=== PATIENT | female | born 1990 | race Two or more races ===

== ENCOUNTER 2018-04-26 02:40 | Emergency (ER) | payer MEDICAID ==
[~2018-04-26] VITALS: Ht 170.2 cm; Wt 65.9 kg
[2018-04-26 02:42] VITALS: BP 134/83
[2018-04-26] MEDS ORDERED: TETRACAINE 0.5% 5 ML OPHTHALMIC DROPS RIGHTEYE ONE (03:25)
== END 2018-04-26 04:02 | disposition home or self-care (01) ==
LOC: ER 02:41
DX: H57.11 Ocular pain, right eye (principal); F17.200 Nicotine dependence, unspecified, uncomplicated; Z56.0 Unemployment, unspecified; W22.8XXA Striking against or struck by other objects, initial encounter; Y93.89 Activity, other specified; Y92.89 Other specified places as the place of occurrence of the external cause; Y99.8 Other external cause status
CPT/HCPCS: 99283

== ENCOUNTER 2019-03-17 20:19 | Emergency (ER) | payer MEDICAID ==
[~2019-03-17] VITALS: Ht 170.2 cm; Wt 65.0 kg
[2019-03-17 20:40] VITALS: BP 109/71
--- NOTE | 2019-03-17 21:45 | NUR ---
TRIED TO CALL PATIENT AND NIL AND NOT OUTSIDE AND THE 2 PHONE NUMBERS ON DEMOGRAPHIC SHEET IS NOT IN SERVICE.
== END 2019-03-17 22:52 | disposition left against medical advice (07) ==
LOC: ER 20:19
DX: R05 Cough (principal); R51 Headache; R50.9 Fever, unspecified; Z53.21 Procedure and treatment not carried out due to patient leaving prior to being seen by health care provider

== ENCOUNTER 2019-08-08 16:54 | Emergency (ER) | payer MEDICAID ==
[~2019-08-08] VITALS: Ht 170.2 cm; Wt 67.0 kg
[2019-08-08 17:37] LABS: URINE HCG NEGATIVE (NEG)
[2019-08-08] MEDS ORDERED: normal saline 1000ML IV soln IVB ONE (17:40)
[2019-08-08 17:45] LABS: CLARITY,URINE CLOUDY (Clear); COLOR,URINE YELLOW (Yellow); GLUCOSE, URINE NEGATIVE (Neg); KETONES,URINE NEGATIVE (Neg); LEUKOCYTE ESTERASE ,URINE NEGATIVE (Neg); NITRITES, URINE POSITIVE (Neg); OCCULT BLOOD,URINE TRACE-INTACT (Neg); PROTEIN,URINE NEGATIVE (Neg)
[2019-08-08 17:46] LABS: UA COLLECTION TYPE CLN CATCH MIDSTREAM
[2019-08-08 17:53] LABS: BACTERIA,URINE 4+ /HPF (Neg); MUCUS STRANDS MODERATE /LPF (Neg); RBC,URINE 0-2 /HPF (0-2); SQUAMOUS EPITHELIAL CELL,UR MANY /LPF (FEW); WBC CLUMPS,URINE FEW /HPF (NEGATIVE)
[2019-08-08 18:29] LABS: BASOPHILS % (AUTO) 0.3 % (0-1); EOSINOPHILS # (AUTO) 0.1 X10'3 (0-0.9); EOSINOPHILS % (AUTO) 1.2 % (0-6); HEMATOCRIT 37.2 % (35.0-45.0); HEMOGLOBIN 12.4 g/dl (12.0-16.0); LYMPHOCYTES # (AUTO) 2.1 X10'3 (1.1-4.8); LYMPHOCYTES % (AUTO) 26.4 % (21-51); MEAN CORPUSCULAR HEMOGLOBIN 30.7 PG (27.0-31.0); MEAN CORPUSCULAR HGB CONC 33.4 g/dL (33.0-36.5); MEAN CORPUSCULAR VOLUME 92.1 FL (78-98); MEAN PLATELET VOLUME 7.6 FL (7.4-10.4); MONOCYTES # (AUTO) 0.6 X10'3 (0-0.9); MONOCYTES % (AUTO) 7.8 % (2-12); NEUTROPHILS # (AUTO) 5.2 X10'3 (1.8-7.7); NEUTROPHILS % (AUTO) 64.3 % (42-75); PLATELET COUNT 231 X10'3 (140-440); RED BLOOD COUNT 4.04 X10'6 (4.20-5.60); RED CELL DISTRIBUTION WIDTH 13.1 % (11.5-14.5); WHITE BLOOD COUNT 8.1 X10'3 (4.5-11.0)
[2019-08-08 18:40] LABS: ALANINE AMINOTRANSFERASE 12 U/L (12-78); ALBUMIN 3.2 G/DL (3.4-5.0); ALKALINE PHOSPHATASE 61 IU/L (46-116); ANION GAP 5 (8-16); ASPARTATE AMINO TRANSFERASE 15 U/L (10-37); BILIRUBIN,TOTAL 0.4 MG/DL (0.1-1.0); BLOOD UREA NITROGEN 11 MG/DL (7-18); BUN/CREATININE RATIO 13.1 (6.6-38.0); CALCIUM 7.9 MG/DL (8.5-10.1); CHLORIDE 107 MMOL/L (99-107); CREATININE 0.84 MG/DL (0.40-0.90); GLUCOSE 90 MG/DL (70-104); LIPASE < 50 U/L (73-393); POTASSIUM 4.1 MMOL/L (3.5-5.1); SODIUM 141 MMOL/L (135-145); TOTAL CARBON DIOXIDE 28.8 MMOL/L (24-32); TOTAL PROTEIN 6.4 G/DL (6.4-8.2); eGFR 80 ML/MIN
[2019-08-08] MEDS ORDERED: PHEN-716 PO (19:02)
[2019-08-08] MEDS ORDERED: NITR100C6 PO (19:02)
[2019-08-08 19:17] LABS: URINE AMPHETAMINE SCREEN POSITIVE (Neg); URINE BARBITUATE SCREEN NEGATIVE (Neg); URINE BENZODIAZEPINES SCREEN NEGATIVE (Neg); URINE CANNABINOID SCREEN POSITIVE (Neg); URINE COCAINE SCREEN NEGATIVE (Neg); URINE METHADONE SCREEN NEGATIVE (Neg); URINE OPIATE SCREEN POSITIVE (Neg); URINE PHENCYCLIDINE SCREEN NEGATIVE (Neg)
[2019-08-08 19:25] VITALS: BP 98/66
== END 2019-08-08 19:25 | disposition home or self-care (01) ==
LOC: ER 16:54
DX: N39.0 Urinary tract infection, site not specified (principal); Z56.0 Unemployment, unspecified
CPT/HCPCS: 36415; 80053; 80305; 81001; 81025; 83690; 85025; 99283; J7030

== ENCOUNTER 2020-11-18 12:24 | Emergency (ER) | payer MEDICAID ==
[~2020-11-18] VITALS: Ht 170.2 cm; Wt 65.9 kg
[~2020-11-18 12:24] MED LIST: NITR100C6 PO; PHEN-716 PO
[2020-11-18] MEDS ORDERED: NAPR-56 PO (12:37)
[2020-11-18] MEDS ORDERED: ALBU6.7H9 INH (12:37)
[2020-11-18 12:39] VITALS: BP 99/64
[2020-11-18] MEDS ORDERED: PRED20TA PO (13:12)
[2020-11-18] MEDS ORDERED: LEVO500T89 PO (13:12)
== END 2020-11-18 13:30 | disposition home or self-care (01) ==
LOC: ER 12:24
DX: U07.1 COVID-19 (principal); N39.0 Urinary tract infection, site not specified; J18.9 Pneumonia, unspecified organism; R06.02 Shortness of breath; R05 Cough; R07.81 Pleurodynia; Z87.440 Personal history of urinary (tract) infections; Z56.0 Unemployment, unspecified; Z79.2 Long term (current) use of antibiotics; Z79.899 Other long term (current) drug therapy
CPT/HCPCS: 36415; 71045; 99284; U0003; U0005

== ENCOUNTER 2021-02-20 16:29 | Emergency (ER) | payer MEDICAID ==
[~2021-02-20] VITALS: Ht 170.2 cm; Wt 70.1 kg
[~2021-02-20 16:29] MED LIST changes: +ALBU6.7H9 INH
[2021-02-20 16:50] VITALS: BP 111/53
[2021-02-20] MEDS ORDERED: PERM60CR19 TOP (16:55)
== END 2021-02-20 17:47 | disposition home or self-care (01) ==
LOC: ER 16:30
DX: B86 Scabies (principal); B88.9 Infestation, unspecified; Z56.0 Unemployment, unspecified; Z79.899 Other long term (current) drug therapy
CPT/HCPCS: 99283

== ENCOUNTER 2025-02-12 11:27 | Emergency (ER) | payer MEDICAID ==
[~2025-02-12] VITALS: Ht 170.2 cm; Wt 65.9 kg
[~2025-02-12 11:27] MED LIST changes: +ALBU6.7H14 INH; -ALBU6.7H9 INH
[2025-02-12 11:33] VITALS: BP 145/87; PULSE 87; RESP 16; TEMP 98.9; O2SAT 99
--- NOTE | 2025-02-12 11:46 | Physician Documentation ---
History of Present Illness ~ Chief Complaint: Medical Clearance Stated Complaint: MED CLEARANCE Time Seen by MD: 11:38 Primary Medical Doctor: NO PMD HPI 34-year-old female presents via [facility] for concerns were snoring drugs in her vagina. [facility] indicates that time there was drugs found in her brought which he did not disclose. Patient states she also soil herself. Denies any current intoxication. The custodial use their x-ray machine indicated there may be a foreign body in the vaginal canal Day of Onset: Feb 12, 2025 Tetanus within 5 years?: Yes Medication Reconciliation Allergies: Coded Allergies: No Known Allergies (Unverified , 02/12/25) Scheduled Albuterol Sulfate (Proventil Hfa), 2 PUFFS INH Q6H Nitrofurantoin Monohyd/M-Cryst (Macrobid 100 mg Capsule), 1 CAP PO Q12H Phenazopyridine HCl (Pyridium), 1 TAB PO Q8H Past Medical History Past Medical History: No Pertinent History, UTI Past Surgical History: noncontributory Other Past Family History: NONCONTRIBUTORY Alcohol Use: None Drug Use: none Lives with: Family Lives In: Home Occupation: unemployed Physical Exam Vital Signs: Temperature: 98.9, Source: Oral, Heart Rate: 87, Respiratory Rate: 16, BP: 145/87, Pulse Oximetry: 99, Weight: 65.910 Oxygen Flow Rate: 0 Physical Exam General: Alert, no apparent distress. HEENT: PERRL, EOMI, no injection, moist mucous membranes. Neck: Full range of motion. Respiratory: Lungs clear, no respiratory distress. Chest: No accessory muscle use. Cardiovascular: Regular rate and rhythm, no murmurs. Gastrointestinal: Soft, nontender, nondistended. Bowels sounds present. Extremities: Normal range of motion, no deformity. Neurologic: Oriented x4. Psychiatric: Normal mood and affect. Skin: Normal color, warm and dry. No edema, no ecchymosis. Progress Results/Orders Results/Orders Vital Signs 02/12/25 11:33 Temp 98.9 Pulse 87 Resp 16 B/P (MAP) 145/87 Pulse Ox 99 O2 Flow Rate 0 Medical Decision Making Additional information obtaine: old records Findings And a bimanual exam with female nurse at bedside, no evidence of foreign body. Patient does not present under the influence vitals were reassuring. going to medically clear her for custodial Differential Dx:Considerations: Include: Intoxication-Alcohol, Intoxication- Other drug, Personality disorder, Substance abuse disorder, Acute delirium, Closed head injury, Cervical spine injury, Skull fracture, Fracture(s), Abrasion, Contusion, Foreign body, Hematoma, Laceration, Alcohol withdrawl syndrom, Encephalopathy, Hepatitis, Medically stable, Other Departure Disposition: HOME / SELF CARE / HOMELESS Impression: Primary Impression: General medical exam Condition: Improved Discharge Instructions: Medical Screening Exam Additional Instructions: Medically cleared for custodial Referrals: NO PRIMARY CARE PROVIDER (PCP) Education Educated: Patient Educated regarding: diagnosis Signature Scribe Signature: t Attestation: Scribed for Ranulfo Valenzuela Traffic Director by Ranulfo Bach NP . 02/12/25 12:01 RANULFO VALENZUELA NP Feb 12, 2025 11:46
== END 2025-02-12 12:26 ==
LOC: ER 11:27
DX: Z00.00 Encounter for general adult medical examination without abnormal findings (principal); Z79.899 Other long term (current) drug therapy; Z56.0 Unemployment, unspecified
CPT/HCPCS: 99284